=== PATIENT | female | born 1975 | race Two or more races ===

== ENCOUNTER 2016-12-04 19:01 | Emergency (ER) | payer OTHER ==
[~2016-12-04] VITALS: Ht 162.6 cm; Wt 56.7 kg
[2016-12-04 19:26] VITALS: BP 130/81
[2016-12-04] MEDS ORDERED: KETOROLAC TROMETHAMINE INJ 30 MG/ML VIAL IM ONE (19:30)
[2016-12-04] MEDS ORDERED: KETOROLAC TROMETHAMINE INJ 30 MG/ML VIAL ONE (19:34)
== END 2016-12-04 20:43 | disposition home or self-care (01) ==
LOC: ER 19:03
DX: M54.5 Low back pain (principal); M79.652 Pain in left thigh
CPT/HCPCS: 72131; 84703; 96372; 99284; A4606; J1885; Z7610